=== PATIENT | male | born 1945 | race Caucasian/White ===

== ENCOUNTER 2017-10-28 12:17 | Outpatient (CLI) | payer MEDICARE, BC ==
[2017-10-28] MEDS ORDERED: EPINEPHrine 1 MG/ML AMP ONE (12:35)
[2017-10-28] MEDS ORDERED: Lidocaine 1% PF 10 ML AMP ONE (12:35)
[2017-10-28] MEDS ORDERED: Iopamidol 300 61% 50 ML VIAL FS ONE (12:35)
[2017-10-28] MEDS ORDERED: Sodium Chloride 0.9% (PF) 10 ML VIAL ONE (12:35)
--- NOTE | 2017-10-28 15:51 | RAD ---
LEFT SHOULDER ARTHROGRAM: 10/28/17 HISTORY: 71-year-old male with history of left rotator cuff repair with left shoulder pain. Following informed consent, the left shoulder was prepped and draped in the usual sterile fashion. Lo pierce anesthetic was obtained with 1% Xylocaine. A 22 gauge needle was introduced into the anterior gle nohumeral joint and iodinated contrast media was injected. Spot films confirm intra-articular locatio n. IMPRESSION: 1. Successful left shoulder arthrogram. 2. Two internal fixation anchors in the humerus evidence for prior rotator cuff repair. Fluoroscopy time - 1.3 minutes with a dose of 89.5 uGy*m2. POS: [facility]
--- NOTE | 2017-10-28 15:58 | CT ---
LEFT SHOULDER CT SCAN POST ARTHROGRAM CONTRAST: 10/28/17 HISTORY: 71-year-old male with history of left rotator cuff repair with left shoulder pain. Exam performed following a left shoulder arthrogram. Two internal fixation anchors are noted. Evidence for prior rotator cuff repair. Mild AC joint arthro sis changes are noted. Mild muscle volume loss of the supraspinatus muscle. Small linear interstitial tear of the subscapularis tendon. There is a small linear focus of contrast extension anteriorly int o the anterior supraspinatus tendon evidence for a small interstitial tear but no complete full thick ness extension. No intact intra-articular biceps tendon. The superior labrum is somewhat blunted. No acute osteochondral defect. IMPRESSION: Postop rotator cuff repair changes. Very thin hairline interstitial and delaminating tear of the subs capularis tendon. Small focus of minimal linear contrast extension into the anterior supraspinatus te ndon from the insertion, evidence for small interstitial tear but no evidence for complete full thick ness or retracted tear. No intact intra-articular biceps tendon is seen. Mild muscle volume loss of t he supraspinatus muscle. Mild glenohumeral joint degenerative change. Some very small calcific foci w ithin the left lobe of the thyroid incidentally seen. POS: [facility]
== END 2017-10-28 12:18 | disposition home or self-care (01) ==
LOC: RAD 12:17
PROVIDERS: ATTEND Orthopaedic Surgery
DX: M25.512 Pain in left shoulder (principal); M75.102 Unspecified rotator cuff tear or rupture of left shoulder, not specified as traumatic; M19.012 Primary osteoarthritis, left shoulder; Z98.890 Other specified postprocedural states
CPT/HCPCS: 23350; J0171